=== PATIENT | female | born 1990 | race American Indian/Alaskan Native ===

== ENCOUNTER 2020-12-10 22:27 | Emergency (ER) | payer SELFPAY ==
[2020-12-10 22:36] VITALS: BP 119/79
[2020-12-10] MEDS ORDERED: dexAMETHasone 4 MG/ML VIAL PO ONE (22:48)
[2020-12-10] MEDS ORDERED: PENICILLIN G BENZATHINE 1.2 MILLION UNIT/2 ML INJ IM STA (22:48)
--- NOTE | 2020-12-10 22:54 | Emergency Department Report ---
ED ENT HPI - General Chief complaint: Sore Throat Stated complaint: SORE THROAT/PAIN Time Seen by Provider: 12/10/20 22:44 Source: patient Mode of arrival: Ambulatory Limitations: No Limitations - History of Present Illness Initial comments: 30-year-old -[place] female no significant past medical history presents emerged department complaining of a 2 to 3-day history of progressively worsening sore throat associated with odynophagia and fever sensation. She reports no foul taste in the mouth reports no abdominal pain, no nausea, no vomiting, no hemoptysis no hematemesis no hematochezia. She reports no chest pain, no palpitation. No wheezing. She reports no posterior pharyngeal trauma. Still able to tolerate liquid MD complaint: sore throat - Related Data Allergies Allergy/AdvReac Type Severity Reaction Status Date / Time No Known Allergies Allergy Unverified 12/10/20 22:34 ED Dental HPI - General Chief complaint: Sore Throat Stated complaint: SORE THROAT/PAIN Time Seen by Provider: 12/10/20 22:44 Source: patient Mode of arrival: Ambulatory Limitations: No Limitations - Related Data Allergies Allergy/AdvReac Type Severity Reaction Status Date / Time No Known Allergies Allergy Unverified 12/10/20 22:34 ED Review of Systems ROS: Stated complaint: SORE THROAT/PAIN Other details as noted in HPI Comment: All other systems reviewed and negative ED Past Medical Hx - Past Medical History Previous Medical History?: No - Surgical History Past Surgical History?: No ED Physical Exam - General Limitations: No Limitations General appearance: alert, in no apparent distress - Head Head exam: Present: atraumatic, normocephalic - Eye Eye exam: Present: normal appearance - ENT ENT exam: Present: mucous membranes moist, other (Pharynx red swollen bilaterally. Airway patent tongue uvula are midline. Normal voice no drooling. Lymphadenopathy to the left tonsillar region no mastoid tenderness no subcutaneous emphysema no mediastinum tenderness) - Neck Neck exam: Present: normal inspection - Respiratory Respiratory exam: Present: normal lung sounds bilaterally. Absent: respiratory distress, chest wall tenderness - Cardiovascular Cardiovascular Exam: Present: regular rate, normal rhythm. Absent: systolic murmur, diastolic murmur, rubs, gallop - GI/Abdominal GI/Abdominal exam: Present: soft, normal bowel sounds - Extremities Exam Extremities exam: Present: normal inspection - Back Exam Back exam: Present: normal inspection - Neurological Exam Neurological exam: Present: alert, oriented X3 - Psychiatric Psychiatric exam: Present: normal affect, normal mood - Skin Skin exam: Present: warm, dry, intact, normal color. Absent: rash ED Course Vital Signs 12/10/20 22:34 Temperature 99.2 F Pulse Rate 100 H Respiratory 18 Rate Blood Pressure 119/79 O2 Sat by Pulse 98 Oximetry ED Medical Decision Making - Medical Decision Making 30-year-old female with no history of any compromised nontoxic appearance patient is euvolemic with no trismus no airway compromise unable to tolerate p.o. given history and examination low suspicion for this presentation being caused by peritonsillar abscess, Oliver, bacterial tracheitis, acute HIV, epiglottitis, retropharyngeal abscess. Critical care attestation.: If time is entered above; I have spent that time in minutes in the direct care of this critically ill patient, excluding procedure time. ED Disposition Clinical Impression: Pharyngitis Disposition: 01 HOME / SELF CARE / HOMELESS Is pt being admited?: No Does the pt Need Aspirin: No Condition: Stable Instructions: Strep Throat, Adult, [id number], Strep Throat, Adult Referrals: [facility] [Provider Group] - 3-5 Days
== END 2020-12-10 23:28 | disposition home or self-care (01) ==
LOC: ED 22:27
DX: J02.9 Acute pharyngitis, unspecified (principal)
CPT/HCPCS: 96372; 99282; J0561; J1100